=== PATIENT | female | born 1980 | race Caucasian/White ===

== ENCOUNTER 2016-10-19 07:45 | Day surgery (SDC) | payer OTHER ==
[~2016-10-19] VITALS: Ht 157.5 cm; Wt 56.0 kg
[~2016-10-19 07:45] MED LIST: DIAZ5TAB4 PO; TRAM50TA2 PO; ZOLP10TA PO
[2016-10-19] MEDS ORDERED: MIDAZOLAM 1 MG/ML, 2ML ONE (08:02)
[2016-10-19] MEDS ORDERED: FENTANYL PF 100 MCG/2ML ONE ×2 (08:03→10:55)
[2016-10-19 09:00] LABS: HCG UR OBC PASS
[2016-10-19] MEDS ORDERED: LACTATED RINGERS 1,000 ML IV SCH (09:02)
[2016-10-19 09:04] VITALS: BP 102/66
[2016-10-19] MEDS ORDERED: BUPIVACAINE/PF-EPI 0.25% 1:200K ONE (09:38)
[2016-10-19] MEDS ORDERED: SILVER NITRATE STICK TP ONE (09:38)
[2016-10-19] MEDS ORDERED: ONDANSETRON 2MG/ML, 2ML IVPush PRN (10:00)
[2016-10-19] MEDS ORDERED: METOCLOPRAMIDE 5 MG/ML, 2ML IV PRN (10:00)
[2016-10-19] MEDS ORDERED: MEPERIDINE/PF 25MG/0.5ML IVPush PRN (10:00)
[2016-10-19] MEDS ORDERED: OXYcodone 5 MG/5 ML ORAL.SOL UDC PO PRN (10:00)
[2016-10-19] MEDS ORDERED: ACETAMINOPHEN 325 MG TABLET PO PRN (10:00)
[2016-10-19] MEDS ORDERED: OXYcodone 5 MG/5 ML ORAL.SOL UDC ONE (10:54)
[2016-10-19] MEDS ORDERED: ACETAMINOPHEN 325 MG TABLET ONE (10:55)
[2016-10-19] MEDS: FENTANYL PF 100 MCG/2ML IV PRN ×2 (10:55→11:10)
[2016-10-19] MEDS ORDERED: HYDROmorphone 2 MG/ML, 1ML ONE (11:25)
[2016-10-19] MEDS: HYDROmorphone 1 MG/ML, 1ML IV PRN ×2 (11:28→11:45)
[2016-10-19] MEDS ORDERED: EPHEDRINE 50 MG/ML, 1ML ONE (12:16)
[2016-10-19] MEDS ORDERED: EPHEDRINE 50 MG/ML, 1ML IVPush PRN (12:30)
[2016-10-19] MEDS ORDERED: ROCURONIUM 10 MG/ML ONE (16:01)
[2016-10-19] MEDS ORDERED: PROPOFOL 10 MG/ML, 20ML ONE (16:01)
[2016-10-19] MEDS ORDERED: GLYCOPYRROLATE 0.2MG/1ML ONE (16:01)
[2016-10-19] MEDS ORDERED: KETOROLAC 30 MG/1 ML ONE (16:01)
[2016-10-19] MEDS ORDERED: DEXAMETHASONE 4 MG/ML, 1ML ONE (16:01)
[2016-10-19] MEDS ORDERED: NEOSTIGMINE 1 MG/ML, 10ML ONE (16:01)
[2016-10-19] MEDS ORDERED: ONDANSETRON 2MG/ML, 2ML ONE (16:01)
== END 2016-10-19 13:55 | disposition home or self-care (01) ==
LOC: OUT 07:45
PROVIDERS: ATTEND Obstetrics & Gynecology
DX: Z30.2 Encounter for sterilization (principal); N83.8 Other noninflammatory disorders of ovary, fallopian tube and broad ligament; Z87.442 Personal history of urinary calculi; Z87.19 Personal history of other diseases of the digestive system; Z82.49 Family history of ischemic heart disease and other diseases of the circulatory system; Z83.3 Family history of diabetes mellitus; Z80.3 Family history of malignant neoplasm of breast; Z80.49 Family history of malignant neoplasm of other genital organs; F17.210 Nicotine dependence, cigarettes, uncomplicated
CPT/HCPCS: 58661; 81025; 88302; J1100; J1170; J1885; J2250; J2405; J2704; J2710; J3010; J7120; J3490

== ENCOUNTER 2018-04-20 04:39 | Emergency (ER) | payer OTHER ==
[~2018-04-20] VITALS: Ht 157.5 cm; Wt 59.0 kg
[2018-04-20 04:47] VITALS: BP 117/74
[2018-04-20] MEDS ORDERED: OXYcodone/APAP 5/325MG TABLET PO ONE (05:30)
[2018-04-20] MEDS ORDERED: OXYcodone/APAP 5/325MG TABLET ONE (05:37)
== END 2018-04-20 07:30 | disposition home or self-care (01) ==
LOC: ED 05:57
DX: G89.11 Acute pain due to trauma (principal); M25.571 Pain in right ankle and joints of right foot; X50.0XXA Overexertion from strenuous movement or load, initial encounter; Y93.89 Activity, other specified; Y99.0 Civilian activity done for income or pay; Y92.69 Other specified industrial and construction area as the place of occurrence of the external cause
CPT/HCPCS: 29515; 99284